=== PATIENT | female | born 1985 | race Hispanic/Latino ===

== ENCOUNTER 2018-02-15 02:52 | Emergency (ER) | payer OTHER ==
--- NOTE | 2018-02-15 03:23 | ED PDOC ---
HPI: Psych/Substance Abuse Time Seen by Provider: 02/15/18 03:04 Chief Complaint (Nursing): Alcohol Ingestion Chief Complaint (Provider): Alcohol Ingestion History Per: Patient History/Exam Limitations: no limitations Onset/Duration Of Symptoms: Unknown Current Symptoms Are (Timing): Still Present Suicide/Self Injury Attempted (Context): None Additional History Per: EMS Additional Complaint(s): 41 year old female brought into the ED via EMS presents for evaluation after being found sleeping outside. She provides a limited history due to alcohol intoxication. Patient admits to drinking too much alcohol but does not quantify the amount. She denies drug use and injury. PMD: unknown Past Medical History Reviewed: Historical Data, Nursing Documentation, Vital Signs Vital Signs: Last Vital Signs Temp 97.8 F 02/15/18 03:05 Pulse 90 02/15/18 03:05 Resp 17 02/15/18 03:05 BP 120/72 02/15/18 03:05 Pulse Ox 98 02/15/18 03:05 - Family History Family History: States: Unknown Family Hx - Allergies Allergies/Adverse Reactions: Allergies Allergy/AdvReac Type Severity Reaction Status Date / Time No Known Allergies Allergy Verified 02/15/18 03:09 Review of Systems ROS Statement: Except As Marked, All Systems Reviewed And Found Negative Constitutional: Positive for: Other (intoxicated) Physical Exam - Reviewed Nursing Documentation Reviewed: Yes Vital Signs Reviewed: Yes - Physical Exam Appears: Positive for: No Acute Distress (intoxicated appearing) Head Exam: Positive for: ATRAUMATIC, NORMAL INSPECTION, NORMOCEPHALIC Skin: Positive for: Normal Color, Warm, Dry Eye Exam: Positive for: EOMI, Normal appearance, PERRL Neck: Positive for: Normal, Painless ROM, Supple Cardiovascular/Chest: Positive for: Regular Rate, Rhythm. Negative for: Murmur Respiratory: Positive for: Normal Breath Sounds. Negative for: Respiratory Distress Gastrointestinal/Abdominal: Positive for: Normal Exam, Soft. Negative for: Tenderness Extremity: Positive for: Normal ROM. Negative for: Deformity Neurologic/Psych: Positive for: Alert, Oriented, Other (slurred speech) - ECG O2 Sat by Pulse Oximetry: 98 (RA) Pulse Ox Interpretation: Normal Medical Decision Making Medical Decision Makin:17 Unknown aged female brought in for alcohol intoxication. --She shows no signs of trauma and has stable vitals. --Will be observed until clinically sober. 03:32 Initial Plan: --Alcohol serum --Glucose, blood POC Quantitative alcohol level is 328. Patient was discharged into the custody of her parents with steady gait, stable condition. Scribe Attestation: Documented by Manju Briceño, acting as a scribe for Carlos Samuels MD Provider Scribe Attestation: All medical record entries made by the Scribe were at my direction and personally dictated by me. I have reviewed the chart and agree that the record accurately reflects my personal performance of the history, physical exam, medical decision making, and the department course for this patient. I have also personally directed, reviewed, and agree with the discharge instructions and disposition. Disposition - Clinical Impression Clinical Impression: Alcohol abuse - Disposition Referrals: Alcoholics Anonymous [Outside] Disposition: Routine/Home Disposition Time: 04:30 Condition: STABLE Instructions: Alcohol Abuse and Alcoholism (DC) Forms: [employer] ([place]inamese)
[2018-02-15 05:11] VITALS: BP 121/67; PULSE 92; RESP 18; TEMP 98.4
[2018-02-15 05:30] VITALS: O2SAT 98
== END 2018-02-15 05:09 | disposition home or self-care (01) ==
LOC: H.ER 02:52
DX: F10.129 Alcohol abuse with intoxication, unspecified (principal)